=== PATIENT | male | born 1940 | race Caucasian/White ===

== ENCOUNTER 2018-12-01 08:25 | Emergency (ER) | payer MEDICARE ==
[~2018-12-01] VITALS: Ht 170.2 cm; Wt 77.3 kg
[2018-12-01 08:26] VITALS: BP 135/53
[2018-12-01] MEDS ORDERED: TETanus/Pertussis (Acell)/Diphther VAC/PF (Tdap-Adult) 0.5ml syringe IM ONE (09:15)
[2018-12-01] MEDS ORDERED: LIDOcaine 1% 30ml preserv. free vial IJ ONE (09:15)
[2018-12-01] MEDS ORDERED: cephalexin 250mg capsule PO ONE (10:15)
[2018-12-01] MEDS ORDERED: HYDR-4383 PO (10:19)
[2018-12-01] MEDS ORDERED: CEPH-572 PO (10:19)
== END 2018-12-01 11:01 | disposition home or self-care (01) ==
LOC: ER 08:26
DX: S62.521A Displaced fracture of distal phalanx of right thumb, initial encounter for closed fracture (principal); S61.011A Laceration without foreign body of right thumb without damage to nail, initial encounter; S68.021A Partial traumatic metacarpophalangeal amputation of right thumb, initial encounter; W26.8XXA Contact with other sharp object(s), not elsewhere classified, initial encounter; Y93.89 Activity, other specified; Y92.89 Other specified places as the place of occurrence of the external cause; Y99.8 Other external cause status
CPT/HCPCS: 11760; 12002; 73140; 90471; 90715; 99284; J3490

== ENCOUNTER 2024-11-27 09:28 | Emergency (ER) | payer MEDICARE, BC ==
[~2024-11-27] VITALS: Ht 170.2 cm; Wt 75.0 kg
[~2024-11-27 09:28] MED LIST: HYDR-4383 PO
[2024-11-27 09:33] VITALS: BP 160/50; PULSE 59; TEMP 97.6; O2SAT 97
[2024-11-27] MEDS ORDERED: ketorolac trometh 30MG/ML vial 30 MG/ML VIAL IM ONE (10:10)
[2024-11-27] MEDS: LIDOcaine 5% patch TP ONE (10:36)
[2024-11-27] MEDS: ketorolac trometh 15mg/ml vial 15 MG/ML ML IM ONE (10:36)
[2024-11-27] MEDS: HYDROcodone/acetaminophen 5mg/325mg tablet PO ONE (10:37)
[2024-11-27] MEDS: cyclobenzaprine 10mg tablet PO ONE (10:37)
[2024-11-27] MEDS: dexamethasone sod phosphate 10mg/ml inj IM STA (10:37)
[2024-11-27 11:09] VITALS: RESP 18
[2024-11-27] MEDS ORDERED: LIDO700A32 TOP (11:14)
[2024-11-27] MEDS ORDERED: HYDR-3965 PO (11:14)
[2024-11-27] MEDS ORDERED: PRED20TA PO (11:14)
[2024-11-27] MEDS ORDERED: CYCL-1 PO (11:14)
[2024-11-28] MEDS ORDERED: LIDOcaine 5% patch TP SCH (08:00)
== END 2024-11-27 11:22 | disposition home or self-care (01) ==
LOC: ER 09:29
DX: S39.012A Strain of muscle, fascia and tendon of lower back, initial encounter (principal); X58.XXXA Exposure to other specified factors, initial encounter; Y93.89 Activity, other specified; Y92.89 Other specified places as the place of occurrence of the external cause; Y99.8 Other external cause status
CPT/HCPCS: 72100; 96372; 99284; J1100; J1885

== ENCOUNTER 2024-12-11 12:54 | Outpatient (CLI) | payer MEDICARE, BC ==
[~2024-12-11 12:54] MED LIST changes: +CYCL-1 PO; +LIDO700A32 TOP
== END 2024-12-11 23:59 | disposition home or self-care (01) ==
LOC: MRI02 12:54
PROVIDERS: ATTEND Anesthesiology
DX: M47.817 Spondylosis without myelopathy or radiculopathy, lumbosacral region (principal); M48.07 Spinal stenosis, lumbosacral region; M51.379 Other intervertebral disc degeneration, lumbosacral region without mention of lumbar back pain or lower extremity pain
CPT/HCPCS: 72148